=== PATIENT | male | born 1930 | race Caucasian/White ===

== ENCOUNTER → 2016-12-02 | Outpatient (CLI) | payer MEDICARE ==
--- NOTE | 2016-12-03 09:03 | CT ---
EXAM DESCRIPTION: CT CHEST WITH IV CONTRAST; CT ABDOMEN PELVIS WITHOUT THEN WITH IV CONTRAST CLINICAL HISTORY: 86 y/o M, LYMPHOMA COMPARISON: July 04, 2015. October 2010. TECHNIQUE: Pre contrasted CT of the abdomen and pelvis was performed. After the administration of IV contrast thin slice imaging of the chest, abdomen and pelvis was performed. FINDINGS: CT chest: There is no axillary lymphadenopathy. There is no supraclavicular lymphadenopathy. Multiple lymph nodes seen within the mediastinum. These are borderline normal in size. The largest is seen within the subcarinal soft tissues and measures approximately 11 mm in diameter. The pulmonary artery is not enlarged. Atherosclerotic disease of the aortic arch. No pericardial disease. Small bilateral pleural effusions are noted. There is evidence of prior granulomatous disease. When compared to the prior study the small pulmonary nodule noted within the lateral left upper lobe has increased significantly in size. This mass has likely spread proximally along the bronchovascular bundles and peripherally within the pleural space. No lytic or blastic lesions seen within the osseous structures of the chest. CT abdomen and pelvis: The spleen is unremarkable. Bilateral adrenal glands are unremarkable. Bilateral kidneys enhance symmetrically. 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 Cholelithiasis noted. Portal vein is widely patent. The liver demonstrates no abnormal enhancement to suggest a mass. Pancreas is unremarkable. Multiple abnormal retroperitoneal lymph nodes noted on today's study. Atherosclerotic disease noted within an aneurysmal infrarenal abdominal aorta. The infrarenal abdominal aorta measures 3.7 cm in diameter. There is no small bowel obstruction on today's study. The colon is unobstructed. Diverticulosis is noted. Negative for diverticulitis. Prostatomegaly noted. The prostate measures 5.3 cm in diameter. Urinary bladder is unremarkable IMPRESSION: When compared to prior study from June 2015 the small nodular density noted within the apex of the left upper lobe has increased dramatically in size. It has spread proximally along the bronchovascular bundles and peripherally. It now measures approximately 4.8 x 3.5 cm. It is contiguous with an area pleural thickening along the anterolateral margin of the left upper lobe. Pleural involvement cannot be excluded. These findings are worrisome for a recurrence. Lymphadenopathy within the retroperitoneum of the abdomen and pelvis. Several of these lymph nodes have remained stable, yet several left increase in size. These findings are equivocal for recurrence. Aneurysmal dilatation of the infrarenal abdominal aorta. It has increased in size. It now measures 3.7 cm in diameter and on prior study measured 3.1 cm in diameter. Electronically signed by: Justin Martinez MD 12/03/2016 09:01
== END | disposition home or self-care (01) ==
LOC: CT 10:13
PROVIDERS: ATTEND Family Medicine
DX: C85.88 Other specified types of non-Hodgkin lymphoma, lymph nodes of multiple sites (principal)

== ENCOUNTER → 2018-01-05 | Outpatient (CLI) | payer MEDICARE ==
--- NOTE | 2018-01-05 19:55 | CT ---
EXAM DESCRIPTION: Chest w/Contrast : Computed Tomography. CLINICAL HISTORY: MALIGNANT NEOPLASM OF UNSPEC LUNG COMPARISON: CT scan of the chest abdomen and pelvis 12/02/2016. TECHNIQUE: Spiral-axial scans at 5.0 mm intervals through the lungs and thorax with IV contrast. 2.5 mm lung algorithm axial reconstructions. Coronal and sagittal 2.0 Mm reconstructions. No adverse reactions. Total Exam DLP: 663.94 mGy-cm. This exam was performed according to our departmental dose-optimization program which includes automated exposure control, adjustment of the mA and/or kV according to patient size and/or use of iterative reconstruction technique; to reduce radiation dose to as low as reasonably achievable (ALARA). FINDINGS: Compared to the prior study, the posterior left upper lobe mass has spread across the upper left major fissure into the superior segment of the left lower lobe. It is also spread anteriorly and superiorly along the left pleura. Now extends to the left hilum abutting the left upper lobe pulmonary arterial branches and the left upper lobe bronchus. The mass measures 5.1 cm along the pleura, 6.8 cm from the pleura to the hilum, 3.8 cm craniocaudally abutting the hilum and 5.5 cm craniocaudally abutting the pleura. Increased pleural thickening posterior to the superior segment of the left lower lobe. Soft tissue mass irregularly enhancing, and is also noted in the inferior posterior hilum abutting the medial left lower lobe bronchus, the lateral aorta, and the left pulmonary vein. This mass shows irregular enhancement measuring 2.2 x 2. 3 cm transverse, and 4.4 cm craniocaudally. Peripheral groundglass densities are again noted in the left upper lobe and left lower lobe and basilar pleural thickening. No significant effusion since the prior study. With pleural thickening laterally and posteriorly. Small scattered lymph nodes in the superior and anterior mediastinum in the AP window, azygos node region and subcarinal region. No significant enlargement since the prior study. Disc shaped soft tissue density in the coronal plane again seen inferior to the den and anterior to the esophagus. Peripheral groundglass densities are again noted in the right upper lobe and middle lobe and lower lobe along with pleural thickening and thickening of the major fissure posteriorly large calcified nodule stable abutting the posterior right lung apex. No new abnormal nodules in the right lung. No pleural effusion. No pneumothorax bilaterally. Inhomogeneous enhancement of the thyroid gland. No axillary masses or adenopathy. No adenopathy in the right hilum. Approximately 5 new soft tissue masses now seen in the inferior posterior mediastinum beginning at the T9 level and extending to the T10-11 level bilaterally. These nodes show minimal enhancement and irregular margins with short axis diameter ranging from 5 mm to 9 mm. At a slightly lower level, a right retrocrural mass is now present measuring 1.5 x 2.1 x 3.0 cm. Spleen is partially visualized with splenule and is stable. Adrenal glands are unremarkable. Multiple stones and sludge again noted in the gallbladder. Multiple levels of thoracic spondylosis again noted with bilateral sternoclavicular degenerative changes with no bone destruction. IMPRESSION: 1. Unfavorable interval change of left upper lobe malignant mass, now extending across the superior major fissure into the superior segment of the left lower lobe, extending along the pleura more inferior and anterior and also extending to the left hilum, abutting the left upper lobe bronchus and branches of the left upper lobe pulmonary artery. 2. Second mass which may be lymph node metastases in the inferior left hilum, abutting the descending aorta, left pulmonary veins, and left lower lobe bronchus. 3. Multiple small new masses in the inferior posterior mediastinum on either side of the descending thoracic aorta just above the diaphragmatic hiatus, also probable metastasis in the right retrocrural lymph node. 4. No adenopathy in the right hilum or middle mediastinum, no new mass in the right lung. Electronically signed by: Kannan Mohr MD 01/05/2018 7:52 PM CDT Workstation: [id number]
== END ==
LOC: CT 09:23
PROVIDERS: ATTEND Family Medicine
DX: C34.90 Malignant neoplasm of unspecified part of unspecified bronchus or lung (principal)

== ENCOUNTER → 2018-03-18 | Outpatient (CLI) | payer MEDICARE ==
--- NOTE | 2018-03-18 12:57 | CT ---
EXAM DESCRIPTION: Chest w/wo Contrast CLINICAL HISTORY: 87 years Male, C34.12 COMPARISON: CT chest dated 12/02/2016. TECHNIQUE: Contiguous thin section axial images through the chest were obtained before and after the administration of intravenous contrast. Sagittal and coronal reconstructions were reviewed. FINDINGS: The visualized thyroid gland and supraclavicular region appear normal. Few subcentimeter mediastinal lymph nodes are identified. No abnormally enlarged axillary or hilar lymphadenopathy. Trachea is midline and the central tracheobronchial tree is patent. Emphysematous changes are identified in both lungs. Honeycombing and chronic interstitial changes are identified in bilateral lower lobes. There is mild associated bronchiectasis. Interval development of airspace opacities in the left lower lobe best seen on axial image #88. Again identified is a mass in the peribronchovascular structures of the left upper lobe which measures 4.9 x 3.4 cm. There is extension of this mass into the left upper lobe which measures 5.5 x 3.4 cm. Surrounding postobstructive atelectasis is also identified. Trace pleural effusions are noted bilaterally. The heart is normal in size with no pericardial effusion. The visualized aorta is nonaneurysmal with mild atherosclerosis. The superior vena cava is normal in size and caliber.No significant coronary artery atherosclerosis. The esophagus appears normal throughout its visualized length. Multiple gallstones are identified. No other abnormality is noted in the imaged upper abdomen. Degenerative changes are identified throughout the thoracic spine. IMPRESSION: Stable left peribronchovascular soft tissue mass extending into the left upper lobe with postobstructive atelectasis. Interval development of new airspace opacities in the left lower lobe which could represent atelectasis and/or pneumonia. Clinical correlation is recommended. Cholelithiasis. This exam was performed according to our departmental dose-optimization program, which includes automated exposure control, adjustment of the mA and/or kV according to patient size and/or use of iterative reconstruction technique. Electronically signed by: Aye Ochoa MD 03/18/2018 12:56 PM CDT
== END ==
LOC: CT 08:39
PROVIDERS: ATTEND Internal Medicine Medical Oncology
DX: C34.12 Malignant neoplasm of upper lobe, left bronchus or lung (principal)

== ENCOUNTER 2018-04-18 08:27 | Emergency (ER) | payer MEDICARE ==
[2018-04-18 08:43] VITALS: TEMP 98.2
[2018-04-18] MEDS ORDERED: ONDANSETRON ODT 8 MG TAB SL ONE (08:56)
[2018-04-18] MEDS ORDERED: MORPHINE SULFATE INJ 10 MG/ML VIAL IM ONE (08:56)
--- NOTE | 2018-04-18 10:08 | CT ---
EXAM: CT Lumbar Spine Without Intravenous Contrast CLINICAL HISTORY: The patient is 87 years old and is Male; back pain after a fall history of lymphoma, history of lung malignancy TECHNIQUE: Axial computed tomography images of the lumbar spine without intravenous contrast. Coronal and sagittal reformatted images were created and reviewed. COMPARISON: Prior CT of the chest with contrast from 03/18/[address] of the abdomen and pelvis from 12/02/2016 with contrast. FINDINGS: VERTEBRAE: Examination is remarkable in demonstration of a large lytic soft tissue metastasis eroding through the posterior half of the L3 vertebral body, without significant height loss. However, the soft tissue component extends into the spinal canal and LEFT neural foramen with associated compromise of both the central canal and LEFT subarticular recess. Malignant soft tissue likely compresses the non-exiting right-sided nerve roots at the L3-L4 level as well. There is NO malalignment identified in the lumbar spine. There are 5 non-rib bearing lumbar vertebral bodies based on prior dimension. Endplate spondylotic changes are again noted throughout the lumbar spine. Alignment is maintained. The spinous processes and the transverse processes are intact. Facet hypertrophic changes in the lower lumbar spine are again noted. DISCS/SPINAL CANAL/NEURAL FORAMINA: There is stable marked disc space narrowing at L4-L5. SOFT TISSUES: Unremarkable. VASCULATURE: Again, an infrarenal fusiform abdominal aortic aneurysm is noted, measuring 3.9 cm in maximal dimension on axial image 63/114 of series 2. It is slightly larger than on the prior abdominal pelvic CT. Bilaterally, there is ectasia of the common iliac arteries again noted. OTHER FINDINGS: There is NO paravertebral hematoma. IMPRESSION: 1. 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 However, the malignant destructive soft tissue component extends into the spinal canal and LEFT neural foramen with associated compromise of both the central canal and LEFT subarticular recess. Malignant soft tissue likely compresses the non-exiting right-sided nerve roots at the L3-L4 level as well. 2. Again, an infrarenal fusiform abdominal aortic aneurysm is noted, without rupture, measuring 3.9 cm in maximal dimension on axial image 63/114 of series 2. It is slightly larger than on the prior abdominal pelvic CT. RECOMMENDATIONS: Recommend follow-up in one year time period (1)Based upon the Society for Vascular Surgery Guidelines: J Vasc Surg. 2009 Jul;50(4 Suppl):S2-49 (2)For aortas of max carole of 2.6-2.9 cm that meet criteria for AAA (>= 1.5 x proximal normal segment) Electronically signed by: Maverick Elizondo MD 04/18/2018 10:07 AM CDT
--- NOTE | 2018-04-18 10:52 | ED.PDOC ---
History of Present Illness - General Chief Complaint: Back Pain or Injury Stated Complaint: back pain Time Seen by Provider: 04/18/18 08:48 Source: patient, RN notes reviewed, Vital Signs reviewed, family Exam Limitations: no limitations - History of Present Illness Timing/Duration: constant, other - started after a fall a month ago. Hs seen the chiropractor 5 times. No imaging. Quality/Severity: moderate, radiation - left hip, sharpness Back Pain Location: lumbar spine Back Pain Radiation: other - left hip Method of Injury/Prior Injury: fell Improving Factors: immobilization Worsening Factors: movement Associated Symptoms: denies symptoms Allergies/Adverse Reactions: Allergies NO KNOWN ALLERGY Allergy (Verified 04/18/18 08:43) Home Medications: Ambulatory Orders Acetaminophen W/ Codeine [Tylenol W/ CODEINE #3] 1 ea PO Q8HRS PRN 5 Days #15 04/18/18 Meloxicam [Meloxicam] 15 mg PO DAILY 04/18/18 Review of Systems - Review of Systems Constitutional: States: no symptoms reported Gastrointestinal/Abdominal: States: no symptoms reported Genitourinary: States: no symptoms reported Musculoskeletal: States: see HPI Neurological: States: no symptoms reported All other Systems: No Change from Baseline Past Medical History (General) - Patient Medical History Hx Stroke: No Hx Congestive Heart Failure: No Hx Diabetes: No Hx Cancer: Yes - lung (2015, 2018), lymphoma (2009)- currently having tx - Vaccination History Hx Influenza Vaccination: No Hx Pneumococcal Vaccination: Yes - 2015 - Social History Hx Tobacco Use: Yes - Quit 2002 Family Medical History - Family History Father Living Status: Cause of : Old age Hx Family Cancer: Yes - Skin Physical Exam - Physical Exam General Appearance: Alert, Comfortable, No apparent distress Neck Exam: full range of motion Gastrointestinal/Abdominal: non tender, soft, no organomegaly, no pulsatile mass , other - rectal: perhaps mildly decreased tone, stool in rectum Back Exam: normal inspection, no CVA tenderness, no vertebral tenderness Extremity Exam: no evidence of injury Neurologic: no motor/sensory deficits, alert, normal mood/affect, oriented x 3, abnormal gait - mild limp Skin Exam: normal color, warm/dry Progress - Progress Progress: 04/18/18 10:50 Unchanged. Wants to go home & f/u with Dr. Ross on Friday. Teaching & precautions given to him & family. - Results/Orders Results/Orders: Pain lessened prior to discharge. - EKG/XRAY/CT CT Ordered: Yes CT Interpretation Call Back: Yes - Dr. Elizondo CT Interpretation Call Back Date: 04/18/18 CT Interpretation Call Back Time: 10:51 - Consult/PCP Time Called: 10:52 Consult Reason/Comments: F/U with Dr. Ross on Friday. Departure - Departure Clinical Impression: Aortic aneurysm Qualifiers: Aortic location: abdominal aorta Presence of rupture: without rupture Qualified Code(s): I71.4 - Abdominal aortic aneurysm, without rupture ICD-10 Supporting Text: back pain with tumor metastasis Disposition: Discharge to Home or Self Care Condition: Fair Departure Forms: ED Discharge - Pt. Copy, Patient Portal Self Enrollment Instructions: DI for Low Back Pain, Aortic Aneurysm (DC) Activity: walking as tolerated Referrals: Baldomero Quach MD [Primary Care Provider] - 04/21/18 Prescriptions: Acetaminophen W/ Codeine [Tylenol W/ CODEINE #3] 1 ea PO Q8HRS PRN 5 Days #15 PRN Reason: Moderate Pain Home Medications: Ambulatory Orders Acetaminophen W/ Codeine [Tylenol W/ CODEINE #3] 1 ea PO Q8HRS PRN 5 Days #15 04/18/18 Meloxicam [Meloxicam] 15 mg PO DAILY 04/18/18
[2018-04-18 11:06] VITALS: BP 131/85; O2SAT 93
== END 2018-04-18 11:06 | disposition home or self-care (01) ==
LOC: ER 08:27
DX: I71.4 Abdominal aortic aneurysm, without rupture (principal); C34.90 Malignant neoplasm of unspecified part of unspecified bronchus or lung; Z87.891 Personal history of nicotine dependence; Z79.899 Other long term (current) drug therapy
CPT/HCPCS: 72131; J2270

== ENCOUNTER → 2018-06-16 | Outpatient (CLI) | payer MEDICARE | LOC: BFHH 13:34 | PROVIDERS: ATTEND Family Medicine | DX: C85.98 Non-Hodgkin lymphoma, unspecified, lymph nodes of multiple sites (principal); J44.9 Chronic obstructive pulmonary disease, unspecified; E11.42 Type 2 diabetes mellitus with diabetic polyneuropathy; C79.51 Secondary malignant neoplasm of bone ==

== ENCOUNTER → 2018-06-18 | Outpatient (CLI) | payer MEDICARE ==
--- NOTE | 2018-06-18 17:32 | US ---
EXAM DESCRIPTION: Venous Doppler ultrasound exam of the Lower Extremity LT CLINICAL HISTORY: LOCALIZED EDEMA COMPARISON: None Available. TECHNIQUE: Left lower extremity venous duplex. Grayscale and color Doppler images were obtained. Spectral waveform analysis was utilized with augmentation and compression. FINDINGS: Doppler evaluation of the left lower extremity deep veins was performed. Normal color flow is seen in the common femoral, superficial femoral, profunda femoral and greater saphenous veins. Normal flow is seen in the popliteal vein and veins below the knee in the calf. Normal venous compressibility and flow augmentation. IMPRESSION: Negative for evidence of deep venous thrombosis on left lower extremity venous Doppler sonogram. Electronically signed by: Suhsant Craft MD 06/18/2018 5:31 PM CDT
--- NOTE | 2018-06-18 17:33 | US ---
EXAM DESCRIPTION: Venous,Lower Extremity RT CLINICAL HISTORY: LOCALIZED EDEMA COMPARISON: None Available. TECHNIQUE: Right lower extremity venous duplex FINDINGS: Doppler evaluation of the right lower extremity deep veins was performed. Normal color flow is seen in the common femoral, superficial femoral, profunda femoral and greater saphenous veins. Normal flow is seen in the popliteal vein and veins below the knee in the calf. Normal venous compressibility and flow augmentation. IMPRESSION: Negative for evidence of deep venous thrombosis on right lower extremity venous Doppler sonogram. Electronically signed by: Sushant Craft MD 06/18/2018 5:31 PM CDT
== END ==
LOC: US 11:03
PROVIDERS: ATTEND Family Medicine
DX: R60.0 Localized edema (principal); M79.605 Pain in left leg; M79.604 Pain in right leg